=== PATIENT | female | born 1980 | race Two or more races ===

== ENCOUNTER 2017-06-24 10:01 | Outpatient (CLI) | payer OTHER | END 2017-06-24 10:13 | disposition home or self-care (01) | LOC: SONOGRAMA 10:01 → MAMO-SONO 10:45 | DX: D25.1 Intramural leiomyoma of uterus (principal) ==

== ENCOUNTER 2017-11-06 08:04 | Outpatient (CLI) | payer OTHER | END 2017-11-06 08:15 | disposition home or self-care (01) | LOC: SONOGRAMA 08:04 → MAMO-SONO 09:45 | DX: D25.1 Intramural leiomyoma of uterus (principal) ==

== ENCOUNTER → 2017-12-14 | Emergency (ER) | payer OTHER ==
[~2017-12-14] VITALS: Ht 172.7 cm; Wt 89.8 kg
[~2017-12-14] MED LIST: SYNTHROID50 MCG
== END | disposition left against medical advice (07) ==
LOC: ER 03:07
DX: Z53.20 Procedure and treatment not carried out because of patient's decision for unspecified reasons (principal)

== ENCOUNTER 2018-03-26 11:07 | Outpatient (CLI) | payer OTHER | END 2018-03-26 11:23 | disposition home or self-care (01) | LOC: RAD 11:07 | DX: N20.0 Calculus of kidney (principal); N18.3 Chronic kidney disease, stage 3 (moderate); M15.0 Primary generalized (osteo)arthritis; R31.29 Other microscopic hematuria ==

== ENCOUNTER 2021-06-28 07:49 | Outpatient (CLI) | payer OTHER | END 2021-06-28 08:46 | disposition home or self-care (01) | LOC: SONOGRAMA 07:49 | PROVIDERS: ATTEND Pathology Anatomic Pathology & Clinical Pathology | DX: E04.1 Nontoxic single thyroid nodule (principal) ==

== ENCOUNTER 2024-12-24 12:49 | Emergency (ER) | payer OTHER ==
[~2024-12-24] VITALS: Ht 172.7 cm; Wt 86.2 kg
[2024-12-24] MEDS ORDERED: COZAAR25 MG PO (14:14)
[2024-12-24] MEDS ORDERED: DEXAMETHASONE SODIUM PHOSPHATE 4 MG/ML VIAL IM STA (14:19)
[2024-12-24] MEDS ORDERED: ACETAMINOPHEN 500 MG GEL..CAP PO STA (14:20)
[2024-12-24] MEDS ORDERED: DEXAMETHASONE SODIUM PHOSPHATE 4 MG/ML VIAL ONE (15:13)
[2024-12-24] MEDS ORDERED: ACETAMINOPHEN 500 MG GEL..CAP PO ONE (15:13)
[2024-12-24 15:40] LABS: BASO % 0.2 % (0.1-1.2); EOS # 0.00 (0.04-0.54); EOS % 0.0 % (0.7-7.0); LYMPH # 1.67 (1.18-3.74); LYMPH % 18.5 % (19.3-53.1); MEAN PLATELET VOLUME 8.30 fl (9.4-12.4); MONO # 0.78 (0.24-0.82); MONO % 8.6 % (4.7-12.5); NEUT # 6.54 (1.56-6.13); NEUT % 72.5 % (34.0-71.1); RED CELL DISTRIBUTION WIDTH 12.9 % (11.6-14.4)
[2024-12-24 16:04] LABS: BUN CREA RATIO 12.0 (7.0-25.0); CREATININE SERUM 0.9 mg/dL (0.55-1.02); GFR 67.71; GLUCOSE FASTING 127.0 mg/dL (65-100); OSMOLALITY SERUM 277.0 MOSM/KG (275-295)
[2024-12-24 16:34] LABS: URINE APPEARANCE Clear; URINE BILIRRUBIN Negative (NEGATIVE); URINE BLOOD Trace; URINE COLOR Yellow; URINE GLUCOSE Negative (NEGATIVE); URINE KETONE Negative (NEGATIVE); URINE LEUKOCYTE Trace; URINE NITRATE Negative; URINE PROTEIN Negative (NEGATIVE); URINE UROBILINOGEN 1.0 E.U./dl
[2024-12-24 16:39] LABS: URINE BACTERIA 2513.7 uL (0.0-1933); URINE EPITHELIAL CELLS 41.0 uL (0.0-38.8); URINE RBC 31.8 uL (0.0-20.8); URINE WBC 37.9 uL (0.0-23.2)
[2024-12-24 16:49] LABS: URINE CAST 0.14 uL (0.0-1.40)
[2024-12-24 16:59] LABS: COVID-19 AG NEGATIVE (NEGATIVE)
== END 2024-12-24 17:38 | disposition home or self-care (01) ==
LOC: ER 12:49
PROVIDERS: General Practice
DX: B34.9 Viral infection, unspecified (principal); R50.9 Fever, unspecified; Z20.822 Contact with and (suspected) exposure to COVID-19; I10 Essential (primary) hypertension